=== PATIENT | male | born 1950 | race Two or more races ===

== ENCOUNTER 2022-05-07 16:04 | Inpatient (IN) | payer OTHER ==
[~2022-05-07] VITALS: Ht 154.9 cm; Wt 129.7 kg
[2022-05-07] MEDS ORDERED: ATORVASTATIN CA10 MG PO (16:44)
[2022-05-07] MEDS ORDERED: ECOTRIN81 MG PO (16:44)
--- NOTE | 2022-05-07 16:55 | NUR ---
SE RECIBE PACIENTE ALERTA, ORIENTADO X 3 ESFERAS, LO ENVIAN DE CRUCERO POR ABCESO EN AREA DE GLUTEO VIDHYA QUE SE ENCUENTRA SUPURANDO , REFIERE ANANDA DOOR SE ESTIMAN S/V SE UBICA EN AREA DE OBSERVACION.
--- NOTE | 2022-05-07 17:53 | NUR ---
MS CASIANO ORIENTA PTE SOBRE TX MEDICO EL CUAL REFIERE ENTENDER.SE LE EXTRAEN MUESTRAS BAJO MEDIDAS ASEPTICAS,SE CANALIZA Y SE ADMINISTRAN MEDICAMENTOS [place] ORDEN MEDICA.
== END 2022-05-18 17:22 | disposition home or self-care (01) | DRG 571 ==
LOC: ER 16:04 → SURH 20:10 → SEC-K 20:10 → SURG 20:10 → SURH 05-08 15:27 → SURG 05-09 21:24 → SURH 05-13 14:30
PROVIDERS: Surgery; ADMIT Internal Medicine; ATTEND Internal Medicine
PROC: 0S9B0ZZ Drainage of Left Hip Joint, Open Approach (ICD-10-PCS; 2022-05-09)
PROC: 0JBM0ZZ Excision of Left Upper Leg Subcutaneous Tissue and Fascia, Open Approach (ICD-10-PCS; 2022-05-09)
PROC: 0J990ZZ Drainage of Buttock Subcutaneous Tissue and Fascia, Open Approach (ICD-10-PCS; 2022-05-09)
PROC: 0JB90ZZ Excision of Buttock Subcutaneous Tissue and Fascia, Open Approach (ICD-10-PCS; principal; 2022-05-09 15:30)
PROC: 8E0ZXY6 Isolation (ICD-10-PCS; 2022-05-11)
DX: L02.31 Cutaneous abscess of buttock (principal); L02.416 Cutaneous abscess of left lower limb; Z16.12 Extended spectrum beta lactamase (ESBL) resistance; Z20.822 Contact with and (suspected) exposure to COVID-19; B95.2 Enterococcus as the cause of diseases classified elsewhere; B96.29 Other Escherichia coli [E. coli] as the cause of diseases classified elsewhere; B96.1 Klebsiella pneumoniae [K. pneumoniae] as the cause of diseases classified elsewhere